=== PATIENT | male | born 1995 | race Caucasian/White ===

== ENCOUNTER 2021-12-10 18:12 | Emergency (ER) | payer BC ==
[~2021-12-10] VITALS: Ht 180.3 cm; Wt 104.3 kg
[2021-12-10] MEDS ORDERED: FLEXERIL PO (20:54)
[2021-12-10 21:04] VITALS: BP 156/99
== END 2021-12-10 21:04 | disposition home or self-care (01) ==
LOC: M.ERS 18:12
DX: M54.50 Low back pain, unspecified (principal); M79.651 Pain in right thigh; Z90.89 Acquired absence of other organs